=== PATIENT | male | born 1970 | race Caucasian/White ===

== ENCOUNTER 2016-11-13 19:51 | Emergency (ER) | payer OTHER ==
[~2016-11-13] VITALS: Ht 195.6 cm; Wt 124.0 kg
[~2016-11-13 19:51] MED LIST: ACET250T3 PO; DIAZ2 PO; ONDA1TAB16 PO; SUCR1S PO; TRAM50 PO
[2016-11-13 20:03] VITALS: BP 118/94; PULSE 87; RESP 18; TEMP 98.2; O2SAT 95
[2016-11-13] MEDS ORDERED: DIAZ10TA PO (21:10)
[2016-11-13] MEDS ORDERED: SODIUM CHLORIDE 0.9% FLUSH 10 ML FLUSH IV FLUSH PRN (21:15)
[2016-11-13 21:17] VITALS: RESP 18; O2SAT 96
[2016-11-13] MEDS ORDERED: SODIUM CHLOR 0.9% 1000 ML INJ 1,000 ML IV ONE (21:30)
[2016-11-13] MEDS ORDERED: ONDANSETRON HCL 4 MG/2 ML VIAL IV PUSH ONE (21:30)
[2016-11-13] MEDS ORDERED: MORPHINE SULFATE 4 MG/ML INJ IV PUSH ONE (21:30)
--- NOTE | 2016-11-13 21:57 | RADHPO ---
EXAM DATE/TIME: 11/13/2016 21:34 [facility] COMPARISON: No previous studies available for comparison. INDICATIONS : Cough and abdominal pain. MEDICAL HISTORY : None. SURGICAL HISTORY : Stents. ENCOUNTER: Initial ACUITY: 3 days PAIN SCORE: 5/10 LOCATION: Bilateral lower chest FINDINGS: PA and lateral views of the chest demonstrate the lungs to be symmetrically aerated without evidence of mass, infiltrate or effusion. The cardiomediastinal contours are unremarkable. Osseous structure s are intact. CONCLUSION: No acute disease. Trae Durham MD on November 13, 2016 at 21:55 Board Certified Radiologist. This report was verified electronically.
[2016-11-13 22:04] VITALS: BP 135/87; PULSE 82; RESP 18; O2SAT 98
[2016-11-13 22:10] LABS: CHLORIDE 106 MEQ/L (98-107); SODIUM (NA) 140 MEQ/L (136-145)
[2016-11-13 22:12] LABS: AUTOMATED NEUTROPHIL # 6.4 TH/MM3 (1.8-7.7); BASOPHIL % 0.3 % (0.0-2.0); EOSINOPHIL # 0.3 TH/MM3 (0-0.4); EOSINOPHIL % 2.6 % (0.0-4.0); HEMATOCRIT 46.5 % (39.0-51.0); HEMO FLAGS DIFF FINAL; LYMPHOCYTE # 2.6 TH/MM3 (1.0-4.8); MEAN CELL VOLUME 89.1 FL (80.0-100.0); MEAN CORPUSCULAR HEMOGLOBIN 29.9 PG (27.0-34.0); MEAN CORPUSCULAR HGB CONC 33.6 % (32.0-36.0); MONO % 8.3 % (0.0-8.0); NEUT % 62.8 % (16.0-70.0); PLATELET COUNT 166 TH/MM3 (150-450); RED BLOOD COUNT 5.22 MIL/MM3 (4.50-5.90); RED CELL DISTRIBUTION WIDTH 13.9 % (11.6-17.2); WHITE BLOOD COUNT 10.1 TH/MM3 (4.0-11.0)
[2016-11-13 22:14] LABS: ANION GAP 9 MEQ/L (5-15); BICARBONATE 25.5 MEQ/L (21.0-32.0); BLOOD UREA NITROGEN 16 MG/DL (7-18)
[2016-11-13 22:17] LABS: ALT (GPT) 64 U/L (12-78); AST (GOT) 38 U/L (15-37); GLOMERULAR FILTRATION RATE 83 ML/MIN (>89)
[2016-11-13 22:18] LABS: TOTAL BILIRUBIN ADULT 0.3 MG/DL (0.2-1.0)
[2016-11-13 22:20] LABS: ALKALINE PHOSPHATASE 87 U/L (45-117)
[2016-11-13 22:43] LABS: POTASSIUM 4.4 MEQ/L (3.5-5.1)
[2016-11-13 23:12] VITALS: BP 145/92; PULSE 87; RESP 18; O2SAT 96
[2016-11-13] MEDS ORDERED: IOHEXOL 350 MG/ML 10 ML VIAL (for RAD DIAG) IV ONE (23:15)
--- NOTE | 2016-11-13 23:27 | PD ---
HPI Chief Complaint: GI Complaint Time Seen by Provider: 21:18 Travel History International Travel<30 days: No Contact w/Intl Traveler<30days: No Traveled to known affect area: No History of Present Illness HPI Patient is a 46-year-old male presents emergency department for evaluation of abdominal pain left lower quadrant. Patient states she has a history of diverticulitis and feels similar. Denies any fever. Patient states pain is been severe for the past few days. Mild nausea without vomiting no diarrhea no blood in the stool. Patient states pain is been gradually worsening. Cannot elicit any alleviating or exacerbating factors. PFSH Past Medical History Anxiety: Yes Cardiac Catheterization: Yes High Cholesterol: Yes Chest Pain: Yes Diminished Hearing: No Hiatal Hernia: Yes Neurologic: Yes (VERTIGO, POSSIBLE LEFT EAR BLOCKAGE OR EQUILIBRIUM PROBLEM) Immunizations Current: Yes Myocardial Infarction: Yes Tetanus Vaccination: < 5 Years Influenza Vaccination: Yes Past Surgical History Appendectomy: Yes Coronary Stent: Yes (X 1- 2004) Other Surgery: Yes (LT HAND) Social History Alcohol Use: No Tobacco Use: No Substance Use: No Allergies-Medications (Allergen,Severity, Reaction): Coded Allergies: Phenergan (Verified Allergy, Intermediate, Dizziness, 11/13/16) Reported Meds & Prescriptions Reported Meds & Active Scripts Active Tessalon Perles (Benzonatate) 100 Mg Cap 100 Mg PO TID PRN Mucinex DM (Dextromethorphan-Guaifenesin) 30-600 Mg Tab 1 Tab PO BID PRN Bentyl (Dicyclomine HCl) 10 Mg Cap 10 Mg PO TID PRN Zofran Odt (Ondansetron Odt) 4 Mg Tab 4 Mg SL Q6HR PRN Reported Diazepam 10 Mg Tab 10 Mg PO BID PRN Review of Systems Except as stated in HPI: all other systems reviewed are Neg Physical Exam Narrative GENERAL: [Well-developed well-nourished, mild discomfort. SKIN: Focused skin assessment warm/dry. HEAD: Atraumatic. Normocephalic. EYES: Pupils equal and round. No scleral icterus. No injection or drainage. ENT: No nasal bleeding or discharge. Mucous membranes pink and moist. NECK: Trachea midline. No JVD. CARDIOVASCULAR: Regular rate and rhythm. No murmur appreciated. RESPIRATORY: No accessory muscle use. Clear to auscultation. Breath sounds equal bilaterally. GASTROINTESTINAL: Abdomen soft, moderately tender in the left lower quadrant without rebound or percussive tenderness., nondistended. Hepatic and splenic margins not palpable. MUSCULOSKELETAL: No obvious deformities. No clubbing. No cyanosis. No edema. NEUROLOGICAL: Awake and alert. No obvious cranial nerve deficits. Motor grossly within normal limits. Normal speech. PSYCHIATRIC: Appropriate mood and affect; insight and judgment normal. Data Data Last Documented VS Vital Signs Date Time Temp Pulse Resp B/P Pulse Ox O2 Delivery O2 Flow Rate FiO2 11/14/16 00:27 18 11/14/16 00:25 85 127/89 96 11/13/16 23:12 Room Air 11/13/16 20:03 98.2 Orders Complete Blood Count With Diff (11/13/16 21:08) Comprehensive Metabolic Panel (11/13/16 21:08) Lipase (11/13/16 21:08) Urinalysis - C+S If Indicated (11/13/16 21:08) Iv Access Insert/Monitor (11/13/16 21:08) Ecg Monitoring (11/13/16 21:08) Oximetry (11/13/16 21:08) Sodium Chloride 0.9% Flush (Ns Flush) (11/13/16 21:15) Morphine Inj (Morphine Inj) (11/13/16 21:30) Ondansetron Inj (Zofran Inj) (11/13/16 21:30) Sodium Chlor 0.9% 1000 Ml Inj (Ns 1000 M (11/13/16 21:30) Ct Abd/Pel W Iv Contrast(Rout) (11/13/16 ) Chest, Pa & Lat (11/13/16 ) Iohexol 350 Inj (Omnipaque 350 Inj) (11/13/16 23:15) Acetamin-Hydrocod 325-5 Mg (Lillian 5-325 (11/13/16 23:45) Urine Culture (11/13/16 23:20) Labs Laboratory Tests Test 11/13/16 11/13/16 21:30 23:20 Sodium Level 140 MEQ/L Potassium Level 4.4 MEQ/L Chloride Level 106 MEQ/L Carbon Dioxide Level 25.5 MEQ/L Anion Gap 9 MEQ/L Blood Urea Nitrogen 16 MG/DL Creatinine 0.97 MG/DL Estimat Glomerular Filtration 83 ML/MIN Rate Random Glucose 98 MG/DL Calcium Level 9.7 MG/DL Total Bilirubin 0.3 MG/DL Aspartate Amino Transf 38 U/L (AST/SGOT) Alanine Aminotransferase 64 U/L (ALT/SGPT) Alkaline Phosphatase 87 U/L Total Protein 7.9 GM/DL Albumin 3.7 GM/DL Lipase 118 U/L White Blood Count 10.1 TH/MM3 Red Blood Count 5.22 MIL/MM3 Hemoglobin 15.6 GM/DL Hematocrit 46.5 % Mean Corpuscular Volume 89.1 FL Mean Corpuscular Hemoglobin 29.9 PG Mean Corpuscular Hemoglobin 33.6 % Concent Red Cell Distribution Width 13.9 % Platelet Count 166 TH/MM3 Mean Platelet Volume 9.9 FL Neutrophils (%) (Auto) 62.8 % Lymphocytes (%) (Auto) 26.0 % Monocytes (%) (Auto) 8.3 % Eosinophils (%) (Auto) 2.6 % Basophils (%) (Auto) 0.3 % Neutrophils # (Auto) 6.4 TH/MM3 Lymphocytes # (Auto) 2.6 TH/MM3 Monocytes # (Auto) 0.8 TH/MM3 Eosinophils # (Auto) 0.3 TH/MM3 Basophils # (Auto) 0.0 TH/MM3 CBC Comment DIFF FINAL Differential Comment Urine Color YELLOW Urine Turbidity CLEAR Urine pH 5.5 Urine Specific [place] 1.028 Urine Protein NEG mg/dL Urine Glucose (UA) NEG mg/dL Urine Ketones NEG mg/dL Urine Occult Blood TRACE Urine Nitrite NEG Urine Bilirubin NEG Urine Leukocyte Esterase NEG Urine RBC 0-3 /hpf Urine WBC 9-14 /hpf Urine Squamous Epithelial 0-5 /hpf Cells Urine Mucus FEW /lpf Microscopic Urinalysis Comment CULTURE INDICATED MDM Medical Decision Making Medical Screen Exam Complete: Yes Emergency Medical Condition: Yes Differential Diagnosis Diverticulitis diverticular abscesses diverticular perforation, constipation, colitis, chronic abdominal pain. Narrative Course Patient 46-year-old overweight male nontoxic appearance presents emergency department for evaluation of left lower quadrant abdominal pain. Basic labs include CBC CP lipase and CAT scan are reassuring. Urinalysis is still pending. Patient has not had any urinary symptoms. He was given morphine and was feeling better for a time and requests additional pain medicine given Lillian and tolerated this well. 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 He is stable for discharge this time. Recommended symptomatically management Zofran and Bentyl at home. Discussed return to ED criteria. Diagnosis Primary Impression: Left lower quadrant abdominal pain of unknown etiology Additional Impression: URI (upper respiratory infection) Qualified Code: J06.9 - Viral upper respiratory tract infection Med/Other Pt SpecificInfo: Prescription(s) given Scripts Benzonatate (Tessalon Perles)100 Mg [id number] Mg PO TID PRN (COUGH) #20 CAP Ref 0 Prov:Trae Gomez MD 11/14/16 Dextromethorphan-Guaifenesin (Mucinex DM)30-600 Mg Tab1 Tab PO BID PRN (CHEST CONGESTION AND/OR COUGH) #20 TAB Ref 0 Prov:Trae Gomez MD 11/14/16 Dicyclomine (Bentyl)10 Mg Cap10 Mg PO TID PRN (Bowel Management) #20 CAP Ref 0 Prov:Trae Gomez MD 11/14/16 Ondansetron Odt (Zofran Odt)4 Mg Tab4 Mg SL Q6HR PRN (Nausea/Vomiting) #30 TAB Ref 0 Prov:Trae Gomez MD 11/14/16 Disposition: 01 DISCHARGE HOME Condition: Stable Trae Gomez MD November 13, 2016 23:27
[2016-11-13 23:45] LABS: BLOOD, URINE TRACE (NEG); GLUCOSE,URINE NEG (NEG); KETONE, URINE NEG (NEG); NITRITE,URINE NEG (NEG); PH, URINE 5.5 (5.0-8.5)
[2016-11-13] MEDS ORDERED: ACETAMINOPHEN/HYDROcodone 325 MG/5 MG TAB PO ONE (23:45)
--- NOTE | 2016-11-13 23:58 | RADHPO ---
EXAM DATE/TIME: 11/13/2016 22:57 [facility] COMPARISON: No previous studies available for comparison. INDICATIONS : Left abdominal pain. IV CONTRAST: 100 cc Omnipaque 350 (iohexol) IV ORAL CONTRAST: No oral contrast ingested. RADIATION DOSE: 22.03 CTDIvol (mGy) MEDICAL HISTORY : Hernia, hiatal. SURGICAL HISTORY : Appendectomy. ENCOUNTER: Initial ACUITY: 1 day PAIN SCALE: 8/10 LOCATION: Left abdomen. TECHNIQUE: Volumetric scanning of the abdomen and pelvis was performed. Using automated exposure control and ad justment of the mA and/or kV according to patient size, radiation dose was kept as low as reasonably achievable to obtain optimal diagnostic quality images. FINDINGS: LOWER LUNGS: The visualized lower lungs are clear. LIVER: Diffusely diminished attenuation is likely steatosis. No evidence of focal mass or biliary ductal dil atation. SPLEEN: Normal size without lesion. PANCREAS: Within normal limits. KIDNEYS: 2.5 cm cyst involving the posterior upper pole cortex of the left kidney. No evidence of stone or hyd ronephrosis. ADRENAL GLANDS: Within normal limits. VASCULAR: There is no aortic aneurysm. BOWEL/MESENTERY: Occasional colonic diverticula. No abnormal dilatation, wall thickening or focal inflammatory change. ABDOMINAL WALL: Within normal limits. RETROPERITONEUM: There is no lymphadenopathy. BLADDER: No wall thickening or mass. REPRODUCTIVE: Within normal limits. INGUINAL: There is no lymphadenopathy or hernia. MUSCULOSKELETAL: Vertebral hemangioma involving T12 and L1 levels. Mild degenerative changes. Enostosis involving the left femoral head. CONCLUSION: Fatty liver. Left renal cyst. No acute CT findings. Bernardo Simon MD on November 13, 2016 at 23:43 Board Certified Radiologist. This report was verified electronically.
[2016-11-14] MEDS ORDERED: DICY10 PO (00:03)
[2016-11-14] MEDS ORDERED: ZOFR4TAB3 SL (00:03)
[2016-11-14] MEDS ORDERED: BENZ100 PO (00:08)
[2016-11-14] MEDS ORDERED: MUCI30TA2 PO (00:08)
[2016-11-14 00:15] LABS: URINE COLOR YELLOW (YELLW/STRAW)
[2016-11-14 00:16] LABS: MUCUS URINE FEW /lpf (OCC)
[2016-11-14 00:18] LABS: RBC, URINE 0-3 /hpf (0-3)
[2016-11-14 00:19] LABS: COMMENT (UR) CULTURE INDICATED; CULTURE IF INDICATED CULTURE INDICATED; SQUAMOUS EPITHELIAL CELL URINE 0-5 /hpf (0-5)
[2016-11-14 00:25] VITALS: BP 127/89
[2016-11-14 00:27] VITALS: RESP 18
== END 2016-11-14 00:26 | disposition home or self-care (01) ==
LOC: PHED 19:51
DX: R10.32 Left lower quadrant pain (principal); J06.9 Acute upper respiratory infection, unspecified; E78.00 Pure hypercholesterolemia, unspecified; I25.2 Old myocardial infarction; Z95.5 Presence of coronary angioplasty implant and graft
CPT/HCPCS: 71020; 74177; 80053; 81001; 83690; 85025; 87086; 96361; 96374; 96375; 99285; J2270; J2405; J7030; Q9967